=== PATIENT | male | born 1940 | race Caucasian/White ===

== ENCOUNTER 2016-08-09 09:07 | Day surgery (SDC) | payer MEDICARE, OTHER ==
[~2016-08-09] VITALS: Ht 188 cm; Wt 78.8 kg
[2016-08-09] VITALS (16 sets, daily range): BP systolic 111–174; BP diastolic 52–90; PULSE 44–79; RESP 12–21; O2SAT 98–100
--- NOTE | 2016-08-09 09:10 | ED.REPORT ---
HPI-Chest Pain 40 and Over Date of Service Aug 09, 2016 ED Provider: Farshad Zamudio DO Patient is a 76 year old with a history of hypertension and hyperlipidemia presenting to the ED complaining of chest pain onset last night. The patient states he has had two episodes of pain with exertion yesterday that lasted five minutes and that the pain resolves after a few minutes of rest. He reports that the pain is diffuse and radiates into his left arm. He saw his PCP yesterday, at which point he had normal labs including cardiac enzymes but an abnormal EKG. He was woken last night by a severe episode, but the pain was relieved after taking nitro prescribed by his primary care physician yesterday and he was able to exert himself without any chest pain this morning. He also admits to similar characterized pain one week ago that woke him from sleep several times but denies diaphoresis, dyspnea, dizziness, ankle swelling, cough, fever, or other recent respiratory problems. The patient stopped taking his meloxicam when the pain began and now only takes 325mg of ASA a day. He did not take his atenolol this morning in case of a stress test. The patient suspects that his symptoms are due to angina. Nursing Notes Stated Complaint: CHEST PAIN Nursing Notes Reviewed: Yes Allergies: Coded Allergies: No Known Allergies (Verified Allergy, Mild, 09/05/07) Scheduled Ascorbic Acid (Vitamin C) 1,000 Mg Tab.chew 1,000 MG PO DAILY Aspirin (Aspirin) 325 Mg Tablet 325 MG PO DAILY Atenolol (Atenolol) 25 Mg Tablet 25 MG PO DAILY Atorvastatin Calcium (Atorvastatin Calcium) 10 Mg Tablet 20 MG PO DAILY pt started taking 20mg 1 week ago Cholecalciferol (Vitamin D3) (Vitamin D) 1,000 Unit Tablet 2,000 UNIT PO DAILY Losartan Potassium (Losartan Potassium) 50 Mg Tablet 50 MG PO DAILYWD Multivit-Min/FA/Lycopen/Lutein (Centrum Silver Men Tablet) 300 Mcg-600 Mcg-300 Mcg Tablet 1 EACH PO DAILY Vit B Comp/C/FA/Iron/Vit E (Vitamin B Complex Tablet) 1 Each Tablet 1 EACH PO DAILY Scheduled PRN Calcium Carbonate (Tums) 500 Mg Tab.chew 500 MG PO PRN PRN PRN For Epigastric Distress Meloxicam (Meloxicam) 7.5 Mg Tablet 7.5 MG PO DAILY PRN PRN For Pain Omeprazole (Omeprazole) 20 Mg Capsule.dr 20 MG PO DAILY PRN PRN For Epigastric Distress General Time Seen by MD: 09:18 Chief Complaint Chest pain Hx Obtained From: Patient Arrived By: Walk-in Sudden in Onset?: Yes Symptom Duration: Waxes and wanes Radiation: : Arm left Severity: Current: Moderate Severity: Maximum: Moderate Recent Healthcare: Recent doctor visit Similar Sx Previous: Yes Past Medical History Past Medical History arthritis hyperlipidemia gastroesophageal reflux disease peripheral neuropathy long standing PAT prostate cancer DJD right hip spinal stenosis Reports: Hypertension Past Surgical History Inguinal hernia leah revision right total hip replacement right ORIF radical prostatectomy Reports: Prostatectomy Family History Reports: Diabetes mellitus, Hypertension Smoking History Never Smoker Social History Alcohol Use: "Social" Other Social History: Ambulatory Status Independent Review of Systems Constitutional: Denies: Fever Respiratory: Denies: Dyspnea on exertion, Non-productive cough, Shortness of breath Cardiovascular: Reports: Chest pain, Denies: Dyspnea on exertion Musculoskeletal: Reports: Extremity pain (left arm), Denies: Extremity swelling (no ankle swelling) Skin: Denies Diaphoresis Neurologic: Denies: Dizziness Complete sys rev & neg: except as marked. Physical Exam Initial Vital Signs Vital Signs (First) Date Time Temp Pulse Resp B/P Pulse Ox O2 Delivery O2 Flow Rate FiO2 08/09/16 09:16 36.5 79 17 174/86 100 Room Air Initial VS: Reviewed General/Constitutional: Awake, Alert, No acute distress thin Respiratory / Chest: Atraumatic, Breath sounds NL, Breath sounds = bilat, No respiratory distress Cardiovascular: Heart rate NL, Regular rhythm, Heart sounds NL Abdomen: Atraumatic, Soft, Non-tender Neck: Atraumatic, Supple, Full range of motion, No JVD Back: Atraumatic, Full range of motion Lower Extremity / Pelvis / MS: Atraumatic, Full range of motion, No swelling, No edema Skin: Atraumatic, Color NL, No rash, Warm, Dry Neurologic: Oriented X3, Speech NL, No motor deficits, No sensory deficits Psychiatric: Affect NL, Mood NL Head / Eyes: Atraumatic, Normocephalic, PERRL, EOMI ENT: Atraumatic, Airway patent, Mucous membranes moist Upper Extremity / MS: Atraumatic, Full range of motion Interpretation & Diagnostics Lab Results Interpretation Result Diagram: 08/09/16 0936 08/09/16 0936 Test 08/09/16 09:36 White Blood Count 4.0th/mm3 (3.8-10.1) Red Blood Count 5.07mil/mm3 (4.40-5.80) Hemoglobin 15.1g/dL (13.8-17.2) Hematocrit 43.8% (41.0-50.0) Mean Corpuscular Volume 86.4fL (81-100) Mean Corpuscular Hemoglobin 29.8pg (27.0-35.0) Mean Corpuscular Hemoglobin Concent 34.5% (32.0-37.0) Red Cell Distribution Width 13.4% (12.3-15.4) Platelet Count 158bil/L (150-400) Neutrophils (%) (Auto) 65.8% (40-74) Lymphocytes (%) (Auto) 18.9% (14-46) Monocytes (%) (Auto) 10.9% (4-12) Eosinophils (%) (Auto) 3.2% (0-5) Basophils (%) (Auto) 0.7% (0-3) Activated Partial Thromboplast Time 27.5sec (22.8-33.0) Sodium Level 139mEq/L (134-144) Potassium Level 4.1mEq/L (3.5-5.2) Chloride Level 99mEq/L (97-108) Carbon Dioxide Level 26mmol/L (18-29) Blood Urea Nitrogen 15mg/dL (8-27) Creatinine 0.92mg/dL (0.76-1.27) Estimat Glomerular Filtration Rate 85mL/min (>59) Glucose Level 93mg/dL (60-99) Calcium Level 9.4mg/dL (8.5-10.1) Magnesium Level 2.1mg/dL (1.6-2.6) Total Bilirubin 0.6mg/dL (0.0-1.2) Aspartate Amino Transf (AST/SGOT) 26U/L (0-50) Alanine Aminotransferase (ALT/SGPT) 24U/L (0-44) Alkaline Phosphatase 56U/L (25-160) Troponin T 0.010ug/L (0.0-0.011) Total Protein 7.3g/dL (6.4-8.4) Albumin 4.4g/dL (3.4-5.0) Hold Wells Top Tube Received (Received) ECG Interpretation ECG Interpretation: Peaked T waves V3 and V4 Otherwise no STT wave changes Time: 09:19 Interpreted by: ED physician Normal ECG Interpretation: Normal rate (74), Normal sinus rhythm X-Ray Chest Interpretation Chest Xray Interpretation: IMPRESSION: Normal chest Dictated by: Ata Mcgowan M.D. on 08/09/2016 at 9:49 Approved by: Ata Mcgowan M.D. on 08/09/2016 at 9:49 Interpretation / Wet Read by: Interpret - Radiologist Re-Eval/Medical Decision Med Decision/Clinical Course Symptoms of unstable angina, heparinized in the ER, cardiology emergently consulted, will go from the ER to labeling specialist for angiogram. Source of Hx: Old records Time of Eval: 09:38 Patient Status: Condition improved Re-Evaluation/Progress Note: Discussed EKG results and diagnosis with the patient. The patient understands and agrees with the diagnosis and plan for admit. All questions were addressed at this time. Time of Eval: 11:05 Re-Evaluation/Progress Note: Rechecked patient, who is comfortable. Code status is discussed. The pt is full code. Consultation #1: Referral / Consult Name: Michelle Muir MD Consulted With: Cardiology Call Returned at: 09:31 Note: Discussed the patient's EKG results and diagnosis with Dr. Muir, fundraising sale representative, who agrees with the diagnosis and plan to admit the patient. Consultation #2: Referral / Consult Name: Peyton Echeverria MD Consulted With: Hospitalist Call Returned at: 10:13 Vehicle Service Attendant: Agrees with eval, Agrees with plan, Accepts admit Note: Discussed diagnosis and plan for admit with Dr. Echeverria, hospitalist. Dr. Echeverria recommends that the patient be admitted to a different floor. 1045--Dr. Singh accepts admit Counseled Regarding: Diagnosis, Lab results, Need for admission Discharge & Departure Primary Impression: Unstable angina Disposition: ADMITTED TO HOSPITAL Discharge Condition All VS Reviewed: Yes Condition: Stable Referrals: Ron Rdz MD (PCP) Jazz Garciaibe Attestation Portions of this note were transcribed by Bea Dunbar and Mireya Mayes. I, Dr. aZmudio personally performed the history, physical exam and medical decision-making; I reviewed and confirmed the accuracy of the information in the transcribed note. Signed by:Bea Dunbar and Mireya Mayes, [place], and [phone]. copies to: Ron Rdz MD; Jazz Garcia Timothy S DO Aug 09, 2016 09:10 Deysi Dunbar Aug 09, 2016 09:28 MIREYA MAYES Aug 09, 2016 09:57
[2016-08-09] MEDS ORDERED: Heparin 5,000 Unit/mL Inj IVPUSH ONE (09:25)
[2016-08-09] MEDS ORDERED: Heparin 25K Unit/500mL 0.45 NS 25,000 UNIT in IV Premix 1 EACH IV ONE (09:25)
[2016-08-09] MEDS ORDERED: ATEN25TA PO (09:43)
[2016-08-09] MEDS ORDERED: VIT1TABL83 PO (09:43)
[2016-08-09] MEDS ORDERED: ASPI325T32 PO (09:43)
[2016-08-09] MEDS ORDERED: ASCO100089 PO (09:43)
[2016-08-09] MEDS ORDERED: MELO-259 PO (09:43)
[2016-08-09] MEDS ORDERED: CALC500T9 PO (09:43)
[2016-08-09] MEDS ORDERED: LOSA50TA37 PO (09:43)
[2016-08-09] MEDS ORDERED: OMEP20CA11 PO (09:43)
[2016-08-09] MEDS ORDERED: ATOR10TA66 PO (09:43)
[2016-08-09] MEDS ORDERED: CHOL100043 PO (09:43)
[2016-08-09] MEDS ORDERED: MULT-1104 PO (09:43)
--- NOTE | 2016-08-09 09:53 | DRSVH ---
PROCEDURE: X-RAY CHEST ONE VIEW, PORTABLE ([id number]) INDICATIONS: CHEST PAIN TECHNIQUE: One view of the chest was acquired. COMPARISON: None. FINDINGS: Surgical changes and devices: None. Lungs and pleura: No pleural effusions or pneumothorax. Lungs are clear. Mediastinum: Mediastinal contours appear normal. Heart size is normal. Bones and chest wall: No suspicious bony lesions. Overlying soft tissues appear unremarkable. IMPRESSION: Normal chest Dictated by: Ata Mcgowan M.D. on 08/09/2016 at 9:49 Approved by: Ata Mcgowan M.D. on 08/09/2016 at 9:49
[2016-08-09 09:59] LABS: BASOPHILS % (AUTO) 0.7 % (0-3); EOSINOPHILS % (AUTO) 3.2 % (0-5); MONOCYTES % (AUTO) 10.9 % (4-12); Mean Corpuscular Hemoglobin 29.8 pg (27.0-35.0); Mean Corpuscular Volume 86.4 fL (81-100); NEUTROPHILS % (AUTO) 65.8 % (40-74); Platelet Count 158 bil/L (150-400)
[2016-08-09 10:08] LABS: TROPONIN T 0.01 ug/L (0.0-0.011)
[2016-08-09 10:22] LABS: Magnesium 2.1 mg/dL (1.6-2.6)
[2016-08-09] MEDS ORDERED: Alum-Mag Hydrox-Simeth 30 mL Suspension PO PRN (11:10)
[2016-08-09] MEDS ORDERED: Ondansetron 2 mg/mL 2 mL Inj IVPUSH PRN ×2 (11:10→21:50)
[2016-08-09] MEDS ORDERED: Heparin 1,000 Unit/mL 10 mL Inj ONE (12:07)
[2016-08-09] MEDS ORDERED: Nitroglycerin 50,000 mcg/250 mL D5W Premix IV ONE (12:07)
[2016-08-09] MEDS ORDERED: 0.9% Sodium Chloride 2,000 ML ONE (12:07)
--- NOTE | 2016-08-09 12:08 | PCM.CHPCAR ---
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 Patient states that he has been relatively healthy. About 2 years ago, he had right hip surgery and has been getting less aerobic exercises since then. About 2-3 weeks ago, patient started having left upper arm and left chest pain with exertion on a daily basis that would last 5 minutes and resolve within a minute or so of rest. The symptoms worsened about a week ago when he started having nocturnal chest pain that would wake him up. He went to his primary care provider yesterday and was prescribed nitroglycerin. Since his primary care visit, he has had 3 more episodes of chest pain at rest that have resolved with nitroglycerin. Patient called his PCP today who advised him to come to the emergency room for further care. In the emergency room, he has not had any chest pain and is asymptomatic. He does get chest pain, he does report lightheadedness. Denies palpitations, heart racing sensations, dyspnea, or syncope. Review of Systems Review of Systems Per history of present illness and otherwise unremarkable PMH Past Medical History # HTN # HLD # Atrial tachycardia Scheduled Ascorbic Acid (Vitamin C) 1,000 Mg Tab.chew 1,000 MG PO DAILY (Reported) Aspirin (Aspirin) 325 Mg Tablet 325 MG PO DAILY (Reported) Atenolol (Atenolol) 25 Mg Tablet 25 MG PO DAILY (Reported) Atorvastatin Calcium (Atorvastatin Calcium) 10 Mg Tablet 20 MG PO DAILY ( Reported) pt started taking 20mg 1 week ago Cholecalciferol (Vitamin D3) (Vitamin D) 1,000 Unit Tablet 2,000 UNIT PO DAILY ( Reported) Losartan Potassium (Losartan Potassium) 50 Mg Tablet 50 MG PO DAILYWD (Reported ) Multivit-Min/FA/Lycopen/Lutein (Centrum Silver Men Tablet) 300 Mcg-600 Mcg-300 Mcg Tablet 1 EACH PO DAILY (Reported) Vit B Comp/C/FA/Iron/Vit E (Vitamin B Complex Tablet) 1 Each Tablet 1 EACH PO DAILY (Reported) Scheduled PRN Calcium Carbonate (Tums) 500 Mg Tab.chew 500 MG PO PRN PRN PRN For Epigastric Distress (Reported) Meloxicam (Meloxicam) 7.5 Mg Tablet 7.5 MG PO DAILY PRN PRN For Pain (Reported) Omeprazole (Omeprazole) 20 Mg Capsule.dr 20 MG PO DAILY PRN PRN For Epigastric Distress (Reported) Current Inpatient Medications Current Medications Al Hydrox/Mg Hydrox/Simethicone 30 ml Q6 PRN PO; Start 08/09/16 at 11:10 Ondansetron HCl Dose range: 4 mg to 8 mg Q4H PRN IVPUSH; Start 08/09/16 at 11:10 Acetaminophen 975 mg Q6H PRN PO; Start 08/09/16 at 11:10 Allergies: Coded Allergies: No Known Allergies (Verified Allergy, Mild, 09/05/07) Family History Family History Mother of CVA age 69 Social History Hx Alcohol Use: Yes (1-2 GLASSES WINE PER NIGHT)Hx Substance Use: NoHx Tobacco Use: No Smoking Status: Never Smoker Exam Vital Signs Vital Sign - Last Date Time Temp Pulse Resp B/P Pulse Ox O2 Delivery O2 Flow Rate FiO2 08/09/16 11:11 65 21 153/64 100 Room Air 08/09/16 09:16 36.5 General appearance: No apparent distress, well-nourished, pleasant, cooperative HEET: Normocephalic atraumatic, no scleral icterus, tongue midline, mucous membranes moist Neck: supple, no carotid bruits Cardiovascular: RRR, normal S1 and normal S2, no murmurs/ rubs/gallops, PMI nondisplaced, no JVD, no peripheral edema Respiratory: Good aeration, CTAB Abdomen: Soft, nontender, nondistended, + bowel sounds Neuro: Alert, no facial droop, tongue midline, no gross motor deficits Psych: appropriate affect Skin: no rashes on face, neck, and lower extremities Lab and Diagnostics Labs Troponin negative Result Diagram: 08/09/1693508/09/16935 12-lead ECG ECG today shows sinus rhythm and non-specific T wave changes Assessment & Plan Assessment 76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 Troponin negative so far. I spoke with patient in great detail about his diagnosis and recommended that he proceed with coronary angiography with PCI. Patient agrees and wishes to proceed forward. Recommendations as below: - Continue aspirin 81mg daily - Continue atorvastatin 40mg qhs - Continue heparin gtt - Continue home dose losartan 50mg daily - Start metoprolol XL 25mg daily and uptitrate to keep HR < 70 - Left heart cath with probable PCI. Informed consent obtained after discussing risks vs benefits - Echo ordered # HTN: BP elevated in ER but he hadn't taken his AM meds. Meds given. Will monitor BP serially. # HLD: statin as above Michelle Muir MD Aug 09, 2016 12:08
[2016-08-09] MEDS ORDERED: Heparin 1,000 Units/500 mL NS Premix IV ONE (12:10)
--- NOTE | 2016-08-09 13:25 | NUR ---
Patient received from [employer] in stable, chest pain free condition. He is admitted through the ED with c/o chest pain and is awaiting heart cath with . He currently has heparin infusing at 1000 units per hour.
[2016-08-09] MEDS ORDERED: fentaNYL-PF 50 mCg/mL 2 mL Inj ONE ×2 (14:56→15:49)
[2016-08-09] MEDS ORDERED: Atropine 1 mg/10 mL (Code) Syringe ONE (15:38)
[2016-08-09] MEDS ORDERED: Phenylephrine/NS-PF 100 mCg/mL 5 mL Syringe IVPUSH ONE (15:38)
--- NOTE | 2016-08-09 16:34 | PCM.CVCATH ---
Cardiac Cath Report Date of Service Aug 09, 2016 Primary Indication Unstable angina Procedure coronary angiography, left heart cath Vascular Access Right radial artery using 6 Fr sheath, closure with TR band (to be done by interventional cardiology). Diagnostic Catheters Left main: [place] 4.5, 5 Fr RCA: [place] 4.5, 5 Fr Procedure Details Coronary angiography details: The patient was brought to the cardiac catheterization lab in the fasting state. Patient was laid supine on the cardiac catheterization table and the right forearm was prepped and draped in the usual sterile fashion. One percent Xylocaine was infiltrated over the right radial artery. Vascular access was then achieved under ultrasound guidance. Guide wire was used to advance the catheter through the sheath and up into aortic sinuses. After coronary angiography was completed, guide wire was advanced through the catheter ahead of the tip of the catheter and the guide wire along with the catheter were pulled together out of the sheath. Medications/Fluoro Time Contrast (Isovue): 60 mls Blood loss: 10 mls Findings 1) Coronary angiography: Right dominance a. Left main is normal caliber with minimal luminal irregularities. b. LAD is normal caliber with 60-70% tubular stenosis proximally and 80-85% mid vessel stenosis, involving the 2nd diagonal takeoff. c. LCx is normal caliber non-dominant vessel with mild luminal irregularities. d. RCA is normal caliber with ectasia in the mid vessel followed by 90% stenosis. The PDA has moderate luminal irregularities but no obstructive stenosis. 2) Left Heart catheterization: a. LVEDP is low at 3 mmHg. b. No significant transaortic gradient on catheter pull-back. Complications There were no periprocedural complications identified. 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 Suspect RCA is the culprit vessel causing angina. Recommendations 1) Refer to interventional cardiology (Dr. [place]) for PCI of the mid-RCA and consider staged PCI of the LAD 2) Continue with secondary prevention of CAD copies to: Ron Rdz MD, Bhrigu R MD Aug 09, 2016 16:34
--- NOTE | 2016-08-09 16:46 | DI95 ---
[address] [address] INTERVENTIONAL CARDIAC CATHETERIZATION PATIENT: DILIP SOTO : 1940 MR#: [id number] ADMIT: 08/09/2016 JOB ID: [id number] DATE OF PROCEDURE: 08/09/2016 PATIENT PROFILE: The patient is a 76-year-old male who presented with acute coronary syndrome. PROCEDURE: Balloon angioplasty and stenting to the distal mid right coronary artery. COMPLICATION: None. METHOD: Following diagnostic angiogram performed by Dr. Gibson, heparin 3,000 units were given. A 6-[place] AR2 guide was advanced to the right coronary ostium. A Runthrough wire was placed inside the right coronary artery. The lesion was pre-dilated with a 3.0 x 15 mm balloon. A Resolute Integrity 4.0 x 22 mm stent was placed inside the lesion and deployed at 18 atmospheres for 30 seconds. Final angiogram was obtained. Following sheath removal, hemostasis was achieved by using TR band. The patient tolerated procedure well. He was transferred to [facility] in good condition. FLUOROSCOPY TIME: 5.9 minutes. Total radiation dose is 576 milligray. RESULTS: Successful balloon angioplasty and stenting to the tight culprit distal mid right coronary artery lesion by deploying one drug-eluting stent (4.0 x 22 mm) to achieve an excellent angiographic result with MAGALI-3 flow distally. MTDD
--- NOTE | 2016-08-09 20:16 | NUR ---
Pt transferred to PSYCHIATRIC room 2020. Pt's VSS, Rt radial site with slight ooze after TR band removed. No hematoma noted. Report and pt handoff given to Justine GALEAS.
--- NOTE | 2016-08-09 21:05 | NUR ---
transfer pt here from [facility], right radial with small ooze, foam and op-site in place, per pt he voided right before coming to the floor, pt with NS at 100cc/hr running, tele SB, pt denies any pain or discomfort. pt on RA, VSS, orientated pt to call light, room and bed.
[2016-08-09] MEDS ORDERED: 0.9% Sodium Chloride 400 ML (4 HRS) IV ONE (21:50)
[2016-08-09] MEDS ORDERED: Atropine 1 mg/10 mL (Code) Syringe IVPUSH PRN (21:50)
[2016-08-10 00:04] VITALS: BP 126/71; PULSE 52; RESP 17; O2SAT 99
--- NOTE | 2016-08-10 02:59 | NUR ---
hematoma pt wanting to stand to void pt accidently using his right wrist and hematoma formed quickly, applied manual pressure for 15 minutes hematoma stopped growing and seemed to have lessoned, outlined, pt elevating hand. pt denies any pain. old oozing not getting bigger. tele SB rate 40-50s.
[2016-08-10 03:23] LABS: Mean Corpuscular Hemoglobin 29.3 pg (27.0-35.0); Mean Corpuscular Volume 86.9 fL (81-100)
[2016-08-10 04:35] VITALS: BP 126/67; PULSE 51; RESP 16; O2SAT 96
[2016-08-10 10:04] VITALS: BP 114/67; PULSE 60; RESP 18; O2SAT 98
[2016-08-10 10:05] VITALS: PULSE 56
[2016-08-10] MEDS ORDERED: MeTOProlol XL 25 mg ER24 Tablet PO SCH (10:40)
--- NOTE | 2016-08-10 10:42 | NUR ---
Case Management: Clarification of patient status: Observation per MD order on 08/10/16. Ekta Damon RN
--- NOTE | 2016-08-10 10:46 | PCM.DIMED ---
Discharge Instructions Date of Service Aug 10, 2016 Dates of Hospitalization 08/09/2016 Discharge Diagnosis Discharge Diagnosis Unstable angina, treated with drug eluting (4.0 x 22 mm) stent to RCA with excellent angiographic results Diet Heart Healthy Activity Other (Do not lift more than 5lbs of weight for the next one week) Patient Instructions Follow-up Provider: Michelle Muir MD Follow-up with PCP in: 4 weeks Michelle Muir MD Aug 10, 2016 10:46
[2016-08-10] MEDS ORDERED: CLOP75TA28 PO (10:50)
[2016-08-10] MEDS ORDERED: CREST10T PO (10:50)
[2016-08-10] MEDS ORDERED: METO25TA99 PO (10:50)
[2016-08-10] MEDS ORDERED: ASPI81TA3 PO (10:50)
[2016-08-10] MEDS ORDERED: LOSA50TA37 PO (10:50)
--- NOTE | 2016-08-10 10:56 | PCM.HPCARD ---
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 Patient states that he has been relatively healthy. About 2 years ago, he had right hip surgery and has been getting less aerobic exercises since then. About 2-3 weeks ago, patient started having left upper arm and left chest pain with exertion on a daily basis that would last 5 minutes and resolve within a minute or so of rest. The symptoms worsened about a week ago when he started having nocturnal chest pain that would wake him up. He went to his primary care provider yesterday and was prescribed nitroglycerin. Since his primary care visit, he has had 3 more episodes of chest pain at rest that have resolved with nitroglycerin. Patient called his PCP today who advised him to come to the emergency room for further care. In the emergency room, he has not had any chest pain and is asymptomatic. He does get chest pain, he does report lightheadedness. Denies palpitations, heart racing sensations, dyspnea, or syncope. Review of Systems Review of Systems Per history of present illness and otherwise unremarkable PMH Past Medical History # HTN # HLD # Atrial tachycardia Scheduled Ascorbic Acid (Vitamin C) 1,000 Mg Tab.chew 1,000 MG PO DAILY (Reported) Aspirin (Aspirin) 325 Mg Tablet 325 MG PO DAILY (Reported) Atenolol (Atenolol) 25 Mg Tablet 25 MG PO DAILY (Reported) Atorvastatin Calcium (Atorvastatin Calcium) 10 Mg Tablet 20 MG PO DAILY ( Reported) pt started taking 20mg 1 week ago Cholecalciferol (Vitamin D3) (Vitamin D) 1,000 Unit Tablet 2,000 UNIT PO DAILY ( Reported) Losartan Potassium (Losartan Potassium) 50 Mg Tablet 50 MG PO DAILYWD (Reported ) Multivit-Min/FA/Lycopen/Lutein (Centrum Silver Men Tablet) 300 Mcg-600 Mcg-300 Mcg Tablet 1 EACH PO DAILY (Reported) Vit B Comp/C/FA/Iron/Vit E (Vitamin B Complex Tablet) 1 Each Tablet 1 EACH PO DAILY (Reported) Scheduled PRN Calcium Carbonate (Tums) 500 Mg Tab.chew 500 MG PO PRN PRN PRN For Epigastric Distress (Reported) Meloxicam (Meloxicam) 7.5 Mg Tablet 7.5 MG PO DAILY PRN PRN For Pain (Reported) Omeprazole (Omeprazole) 20 Mg Capsule.dr 20 MG PO DAILY PRN PRN For Epigastric Distress (Reported) Current Inpatient Medications Current Medications Al Hydrox/Mg Hydrox/Simethicone 30 ml Q6 PRN PO; Start 08/09/16 at 11:10 Ondansetron HCl Dose range: 4 mg to 8 mg Q4H PRN IVPUSH; Start 08/09/16 at 11:10 Acetaminophen 975 mg Q6H PRN PO; Start 08/09/16 at 11:10 Allergies: Coded Allergies: No Known Allergies (Verified Allergy, Mild, 09/05/07) Family History Family History Mother of CVA age 69 Social History Hx Alcohol Use: Yes (1-2 GLASSES WINE PER NIGHT)Hx Substance Use: NoHx Tobacco Use: No Smoking Status: Never Smoker Exam Vital Signs Vital Sign - Last Date Time Temp Pulse Resp B/P Pulse Ox O2 Delivery O2 Flow Rate FiO2 08/09/16 11:11 65 21 153/64 100 Room Air 08/09/16 09:16 36.5 General appearance: No apparent distress, well-nourished, pleasant, cooperative HEET: Normocephalic atraumatic, no scleral icterus, tongue midline, mucous membranes moist Neck: supple, no carotid bruits Cardiovascular: RRR, normal S1 and normal S2, no murmurs/ rubs/gallops, PMI nondisplaced, no JVD, no peripheral edema Respiratory: Good aeration, CTAB Abdomen: Soft, nontender, nondistended, + bowel sounds Neuro: Alert, no facial droop, tongue midline, no gross motor deficits Psych: appropriate affect Skin: no rashes on face, neck, and lower extremities Lab and Diagnostics Labs Troponin negative Result Diagram: 08/09/1693508/09/16935 12-lead ECG ECG today shows sinus rhythm and non-specific T wave changes Assessment & Plan Assessment 76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 Troponin negative so far. I spoke with patient in great detail about his diagnosis and recommended that he proceed with coronary angiography with PCI. Patient agrees and wishes to proceed forward. Recommendations as below: - Continue aspirin 81mg daily - Continue atorvastatin 40mg qhs - Continue heparin gtt - Continue home dose losartan 50mg daily - Start metoprolol XL 25mg daily and uptitrate to keep HR < 70 - Left heart cath with probable PCI. Informed consent obtained after discussing risks vs benefits - Echo ordered # HTN: BP elevated in ER but he hadn't taken his AM meds. Meds given. Will monitor BP serially. # HLD: statin as above PMH Allergies: Coded Allergies: No Known Allergies (Verified Allergy, Mild, 09/05/07) Social History Hx Alcohol Use: Yes (1-2 GLASSES WINE PER NIGHT)Hx Substance Use: NoHx Tobacco Use: No Smoking Status: Never Smoker Exam Vital Signs Vital Sign - Last Date Time Temp Pulse Resp B/P Pulse Ox O2 Delivery O2 Flow Rate FiO2 08/10/16 10:05 56 08/10/16 10:04 36.4 18 114/67 98 Room Air Intake and Output 08/09/16 08/09/16 08/10/16 Cumulative From/Thru 15:00 23:00 07:00 08/09/16 09:16 - 08/10/16 06:09 Intake Total 905 ml 905 ml Output Total 400 ml 1000 ml 1400 ml Balance -400 ml -95 ml -495 ml Intake Oral 300 ml 300 ml IV Total 605 ml 605 ml Output Urine Total 400 ml 1000 ml 1400 ml # Voids 1 1 Lab and Diagnostics Result Diagram: 08/10/16 0300 08/10/16 0300 Michelle Muir MD Aug 10, 2016 10:56
--- NOTE | 2016-08-10 11:01 | PCM.DC.CAR ---
Discharge Summary Date of Service Aug 10, 2016 Date of Hospital Admission 08/09/2016 Date of Discharge: Aug 10, 2016 Providers: Admitting Physician: Primary Care Physician: Ron Rdz MD Attending Physician: Peyton Echeverria MD Diagnosis at Time of Discharge Unstable angina, treated with drug eluting (4.0 x 22 mm) stent to RCA with excellent angiographic results Problems: Echo: Echo todya: report pending but grossly appears to have normal LV function and no valvular disease Invasive Procedures: see cath report. YOON to RCA by Dr. [place]. Staged PCI of the LAD as outpatient Brief History and Physical: see H&P for complete details. Briefly, patient admitted with unstable angina. Hospital Course: Patient had urgent YOON placement to his RCA. He tolerated the procedure well. No angina following procedure. Discharge Medications Ascorbic Acid (Vitamin C) 1,000 Mg Tab.chew 1,000 MG PO DAILY Aspirin Chew (Aspirin Chew) 81 Mg Chew 81 MG PO DAILY Cholecalciferol (Vitamin D3) (Vitamin D) 1,000 Unit Tablet 2,000 UNIT PO DAILY Clopidogrel (Clopidogrel) 75 Mg Tablet 75 MG PO DAILY Losartan Potassium (Losartan Potassium) 50 Mg Tablet 50 MG PO HS Metoprolol Succinate ER (Metoprolol Succinate ER) 25 Mg Tab.er.24h 12.5 MG PO DAILY Multivit-Min/FA/Lycopen/Lutein (Centrum Silver Men Tablet) 300 Mcg-600 Mcg-300 Mcg Tablet 1 EACH PO DAILY Rosuvastatin Calcium (Crestor) 10 Mg Tablet 40 MG PO HS Vit B Comp/C/FA/Iron/Vit E (Vitamin B Complex Tablet) 1 Each Tablet 1 EACH PO DAILY As needed Omeprazole (Omeprazole) 20 Mg Capsule.dr 20 MG PO DAILY PRN PRN For Epigastric Distress Followup Plan Discharge Diet: Heart Healthy Discharge Activity: Other (Do not lift more than 5lbs of weight for the next one week) Michelle Muir MD Aug 10, 2016 11:01
--- NOTE | 2016-08-10 11:25 | NUR ---
Case Management: Provided Medicare YATES information with Medicare Brochure regarding "self-administered drugs given in hospital outpatient settings" and explained. Pt signed at 1115, original to chart, copy to patient. Ekta Damon RN
--- NOTE | 2016-08-10 11:40 | NUR ---
Social Work Note: Initial Assessment/Discharge Data& Assessment: EMR reviewed. Per pt is medically ready to discharge home via POV. SW met with pt briefly to discuss discharge planning and assess for any unmet needs. Paco Parisi is a 76 year old male cardiac pt here for unstable angina. Per pt is medically ready for discharge. Pt lives in [place] with his and is independent with all ADL's at baseline. Pt does not use any DME at home and drives. Pt sees Ron Rdz MD for primary care. Pt does not have HH or SNF hx. Pt does not have [place] service connection or LTC insurance. Pt confirms he has current DPOA/Advance Directive paperwork completed, SW requested a copy for his chart when possible. Pt transporting him home, pt denies any other needs. No other discharge needs identified. Plan: Per pt is medically ready to discharge home via POV. Pt denies any other needs. No other discharge needs identified. ANDREA Morgan Addendum: 08/10/16 at 1145 by YO PAYNE Amended: Links added.
--- NOTE | 2016-08-10 13:14 | NUR ---
Discharge Pt discharged home with transportation by himself POV. Pt IV's dc'd intact, Telemetry was removed and tech notified. Pt's new medications, discharge instructions and follow up appointments were reviewed, all questions were answered, pt voiced understanding. Pt's belongings were gathered for transport with pt. Pt was escorted off unit by RN.
--- NOTE | 2016-08-11 11:44 | DRSVH ---
[facility] [address] [place] [address] Echocardiogram Report Name: DILIP SOTO JStudy Date: Height: 76 in Hospital Exam Location: [facility] Weight: 174 lb Gender: Male BSA: 2.0 m2 : 1940 Age: 76 yrs BP: 126/67 mmHg Reason For Study: Angina Ordering Physician: Performed By: Jesus Wilson Interpretation Summary The left ventricle is normal in size. The ejection fraction is estimated to be 60-65%. The right ventricle is normal size. The right ventricular systolic function is normal. There is mild mitral regurgitation. There is mild tricuspid regurgitation. The right ventricular systolic pressure is estimated at 29 mmHg assuming a right atrial pressure of 8 mm Hg. Intermittent ventricular couplets seen. Procedure: A two-dimensional transthoracic echocardiogram with color flow and Doppler was performed. The study quality was technically good. There is no prior echocardiogram noted for this patient. The patient was in normal sinus rhythm during the exam. Intermittent ventricular couplets seen. Left Ventricle: The left ventricle is normal in size. There is normal left ventricular wall thickness. There is no thrombus. The ejection fraction is estimated to be 60-65%. There is a mild dyssynchronous contraction pattern, consistent with a conduction abnormality. Spectral Doppler of the mitral valve is reversed, with an E/A wave ratio < 1.0. Right Ventricle: The right ventricle is normal size. A calcified moderator band is seen in the right ventricle. The right ventricular systolic function is normal. Atria: The left atrium is mildly dilated. The right atrium is normal in size. The interatrial septum is intact with no evidence for an atrial septal defect. Mitral Valve: The mitral valve leaflets are slightly calcified. There is mild mitral annular calcification. There is mild mitral regurgitation. Aortic Valve: The aortic valve is mildly calcified. The aortic valve is trileaflet. There is no aortic valve stenosis. No aortic regurgitation is present. Tricuspid Valve: Fatty tricuspid annulus. There is mild tricuspid regurgitation. The right ventricular systolic pressure is estimated at 29 mmHg assuming a right atrial pressure of 8 mm Hg. Pulmonic Valve: The pulmonic valve is not well seen, but is grossly normal. There is trace pulmonic regurgitation. Great Vessels: The aortic root is normal size. The ascending aorta could not be visualized. The pulmonary artery is normal size. The IVC is dilated (diameter is greater than 2.1 cm) yet it collapses greater than 50% with a sniff. This suggests a right atrial pressure of 8 mm Hg. Pericardium/ Pleura There is no pericardial effusion. There is no pleural effusion. MMode/2D Measurements & Calculations LVIDd: 4.3 cm RA long axis LVOT diam LVIDs: 3.0 cm LA A2 area: 22.5 cm FS: 31.0 % LA A4 area: 24.5 cm RA area AoV Opening EPSS: 0.06 cm LA length (vol): 5.6 cm IVSd: 0.84 cm LA vol: 83.6 ml : 18.6 cm Ao root diam LVPWd: 0.98 cm LA vol index RA vol: 55.5 ml: 2.9 cm RA : 27.1 mm2 IVC diam: 2.7 cm LV alejandra. diameter/BSA LV sys. diameter/BSA RVD1 (basal) RVD2 (mid) (cm/m^2): 2.1 (cm/m^2): 1.5 : 2.9 cm TAPSE: 3.1 cm Doppler Measurements & Calculations Ao V2 max: 141.8 cm/secMV E max haja MV E/A: 1.2 TR max haja Ao max P.0 mmHg : 86.4 cm/sec Med Peak E' Haja : 229.4 cm/sec Ao mean P.3 mmHg MV A max haja TR max PG LVOT Max Haja : 72.6 cm/sec E/E' med: 11.2 : 21.0 mmHg : 144.0 cm/sec Lat Peak E' Haja PA V2 max : 114.9 cm/sec BLADE(I,D): 2.9 cm E/E' lat: 10.4 PA mean PG sev ratio: 0.91 E/e' average : 2.8 mmHg MV dec time: 0.20 sec Ao V2 mean LV V1 max PG PA V2 mean : 97.2 cm/sec : 79.1 cm/sec Ao V2 VTI LV V1 VTI: 29.4 cmPA pr(Accel) : 30.7 mmHg BLADE(V,D): 3.2 cm2 BLADE indexed to BSA (cm^2/m^2): 1.4 Reading Physician:STEVEN
== END 2016-08-10 12:05 | disposition home or self-care (01) ==
LOC: SED 09:07 → UNDOADMOB 10:59 → MPC 10:59 → PCC 11:22 → UNDOADMOB 11:22 → SOUO 12:49 → PCC 19:51 → SOUO 08-10 12:05
PROVIDERS: ATTEND Internal Medicine Cardiovascular Disease
DX: I25.110 Atherosclerotic heart disease of native coronary artery with unstable angina pectoris (principal); E11.42 Type 2 diabetes mellitus with diabetic polyneuropathy; E78.5 Hyperlipidemia, unspecified; K21.9 Gastro-esophageal reflux disease without esophagitis; I10 Essential (primary) hypertension; Z96.641 Presence of right artificial hip joint; Z79.82 Long term (current) use of aspirin
CPT/HCPCS: 36415; 71010; 80048; 80053; 83735; 84484; 85025; 85027; 85730; 93005; 93458; 96374; 99152; 99153; 99285; C1725; C1769; C1874; C1887; C1894; C8929; C9600; J1644; J2250; J3010; J7030; Q9967

== ENCOUNTER 2016-08-15 00:03 | Day surgery (SDC) | payer MEDICARE, OTHER ==
[~2016-08-15] VITALS: Ht 188 cm; Wt 77.2 kg
[2016-08-15] VITALS (12 sets, daily range): BP systolic 102–133; BP diastolic 54–84; PULSE 53–64; RESP 12–18; O2SAT 97–98
[~2016-08-15 00:03] MED LIST: ASCO100089 PO; ASPI81TA3 PO; CHOL100043 PO; CLOP75TA28 PO; CREST10T PO; LOSA50TA37 PO; METO25TA99 PO; MULT-1104 PO; OMEP20CA11 PO; VIT1TABL83 PO
[2016-08-15 07:50] LABS: BASOPHILS % (AUTO) 1.5 % (0-3); EOSINOPHILS % (AUTO) 4.1 % (0-5); MONOCYTES % (AUTO) 10.9 % (4-12); Mean Corpuscular Hemoglobin 29.4 pg (27.0-35.0); Mean Corpuscular Volume 85.1 fL (81-100); NEUTROPHILS % (AUTO) 58.8 % (40-74); Platelet Count 169 bil/L (150-400)
[2016-08-15] MEDS ORDERED: Heparin 5,000 Units/500 mL NS Premix IV ONE (08:17)
[2016-08-15] MEDS ORDERED: Heparin 1,000 Units/500 mL NS Premix IV ONE ×2 (08:17→09:18)
[2016-08-15] MEDS ORDERED: Nitroglycerin 50,000 mcg/250 mL D5W Premix IV ONE (08:17)
[2016-08-15] MEDS ORDERED: Heparin 1,000 Unit/mL 10 mL Inj ONE (09:36)
[2016-08-15] MEDS ORDERED: fentaNYL-PF 50 mCg/mL 2 mL Inj ONE (09:36)
[2016-08-15] MEDS ORDERED: Phenylephrine/NS-PF 100 mCg/mL 5 mL Syringe IVPUSH ONE (09:41)
[2016-08-15] MEDS ORDERED: Atropine 1 mg/10 mL (Code) Syringe ONE (09:41)
--- NOTE | 2016-08-15 11:45 | DI95 ---
[address] [address] INTERVENTIONAL CARDIAC CATHETERIZATION PATIENT: DILIP SOTO : 1940 MR#: [id number] ADMIT: 08/15/2016 JOB ID: [id number] DATE OF PROCEDURE: 08/15/2016 PATIENT PROFILE: The patient is a 76-year-old male, who presented with acute coronary syndrome on August 09, 2016. He underwent angioplasty and stent placement to the distal mid right coronary artery. He was found at that time to have severe stenosis of the left anterior descending and 2nd diagonal branch. The patient returned for elective intervention procedure. PROCEDURE: Aborted percutaneous coronary intervention to the bifurcation left anterior descending and second diagonal branch. VASCULAR CLOSURE DEVICE: StarClose. COMPLICATIONS: None. METHOD: Vascular access was obtained from the right groin under 1% lidocaine local anesthesia using a 7-German sheath. A 7-German JL4 guide was advanced into the left ventricle and left ventricular pressure was obtained. This was then pulled back and directed into the left coronary ostium. A Runthrough wire was placed inside the second diagonal branch. Heparin 8,000 units were given. The angiogram demonstrated heavy calcification of the left anterior descending artery. Intervention procedure was aborted. Right femoral angiogram was performed before sheath removal. Hemostasis was achieved by using a StarClose device, which the patient tolerated the procedure well. He was transferred to [facility] in good condition. TOTAL CONTRAST USED: 10 cc. FLUOROSCOPY TIME: 0.8 minutes. RESULTS: 1. Left main coronary artery is normal. 2. The left anterior descending artery is heavily calcified and has diffuse calcification to the entire length of the artery. The proximal left anterior descending artery has 60% stenosis. The mid left anterior descending artery has severe 95% stenosis in the mid portion. The first diagonal branch has 60-70% stenosis at its origin. The second diagonal branch has 80% stenosis at its origin. 3. Percutaneous intervention was aborted due to heavy calcification of this left anterior descending artery. 4. Aortic pressure is 132/58 mmHg. Left ventricular pressure is 131/0 mmHg. 5. Left ventricular end diastolic pressure is 13 mmHg. MTDD
[2016-08-15] MEDS ORDERED: CLOP75TA28 PO (12:31)
[2016-08-15] MEDS ORDERED: METO25TA99 PO (12:31)
[2016-08-15] MEDS ORDERED: ASPI81TA3 PO (12:31)
[2016-08-15] MEDS ORDERED: ROSU40TA PO (12:31)
--- NOTE | 2016-08-15 13:37 | NUR ---
Discharge Pt discharged to home with family after stable recovery post heart cath, VSS on RA, groin site soft non tender. Pt stated verbal understanding of discharge instructions regarding use of home medications, signs of worsening condition and follow up appointments. Pt left with personal belongings, Discharge paperwork, IV dc'd intact at appromimately 1330.
== END 2016-08-15 23:59 | disposition home or self-care (01) ==
LOC: SOUO 00:03
PROVIDERS: ATTEND Internal Medicine Interventional Cardiology
DX: I25.10 Atherosclerotic heart disease of native coronary artery without angina pectoris (principal); Z53.09 Procedure and treatment not carried out because of other contraindication; I25.84 Coronary atherosclerosis due to calcified coronary lesion
CPT/HCPCS: 36415; 80048; 85025; 92920; 93005; 99152; C1725; C1760; C1769; C1887; J1644; J2060; J2250; J3010; Q9967